=== PATIENT | male | born 1965 | race Caucasian/White ===

== ENCOUNTER 2018-01-20 18:19 | Inpatient (IN) ==
[2018-01-20] MEDS ORDERED: Diphtheria/Tetanus/Pertussis Vaccine Inj 0.5 ML Syringe IM ONE (18:35)
[2018-01-20] MEDS ORDERED: Morphine Inj 4 MG/ML Vial IV.PUSH ONE ×2 (18:35→19:58)
[2018-01-20] MEDS ORDERED: Sod Chloride 0.9% Inj 1,000 ML IV.SIG SCH (18:45)
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
[2018-01-20 19:06] LABS: Baso % (Auto) 0.4 % (0.0-2.0); Eos # (Auto) 0.1 th/mm3 (0.0-0.4); Eos % (Auto) 1.1 % (0.0-4.0); Hematocrit 44.4 % (39.0-51.0); Hemoglobin 14.7 gm/dL (13.0-17.0); Lymph # (Auto) 1.6 th/mm3 (1.0-4.8); Lymph % (Auto) 18.6 % (9.0-44.0); Mean Corpuscular HGB Conc 33.2 % (32.0-36.0); Mean Corpuscular Hemoglobin 29.7 pg (27.0-34.0); Mean Corpuscular Volume 89.4 fL (80.0-100.0); Mean Platelet Volume 9.8 fL (7.0-11.0); Mono # (Auto) 0.6 th/mm3 (0.0-0.9); Mono % (Auto) 7.4 % (0.0-8.0); Neut # (Auto) 6.3 th/mm3 (1.8-7.7); Neut % (Auto) 72.5 % (16.0-70.0); Platelet Count 141 th/mm3 (150-450); Red Blood Count 4.96 mil/mm3 (4.50-5.90); White Blood Count 8.7 th/mm3 (4.0-11.0)
[2018-01-20 19:21] LABS: Activated Partial Thrombo Time 22.2 sec (23.4-31.7); INR 1.1 Ratio; Prothrombin Time 10.8 sec (9.8-11.6)
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
[2018-01-20 19:55] LABS: Calcium 8.5 mg/dL (8.5-10.1); Carbon Dioxide 24.5 meq/L (21.0-32.0); Potassium 3.9 meq/L (3.5-5.1)
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
[2018-01-21] MEDS: Sod Chloride 0.9% Inj 1,000 ML IV.CONT SCH ×3 (00:33→12:20)
[2018-01-21] MEDS: HYDROmorphone PF Inj 1 MG/ML Ampul IV.PUSH PRN ×5 (02:05→21:24)
[2018-01-21] MEDS ORDERED: Chlorhexidine Gluconate 2% 1 Pack (2 Cloths) TOPICAL ONE (05:15)
[2018-01-21] MEDS ORDERED: Sodium Chlor 0.9% Inj 500 ML IV.CONT ONE (05:15)
[2018-01-21 06:24] LABS: Baso % (Auto) 0.1 % (0.0-2.0); Eos % (Auto) 0.1 % (0.0-4.0); Hemoglobin 12.7 gm/dL (13.0-17.0); Lymph # (Auto) 0.6 th/mm3 (1.0-4.8); Lymph % (Auto) 6.9 % (9.0-44.0); Mean Corpuscular HGB Conc 34.3 % (32.0-36.0); Mean Corpuscular Hemoglobin 30.3 pg (27.0-34.0); Mean Corpuscular Volume 88.5 fL (80.0-100.0); Mean Platelet Volume 9.8 fL (7.0-11.0); Mono # (Auto) 0.6 th/mm3 (0.0-0.9); Mono % (Auto) 6.3 % (0.0-8.0); Neut # (Auto) 7.6 th/mm3 (1.8-7.7); Neut % (Auto) 86.6 % (16.0-70.0); Platelet Count 128 th/mm3 (150-450); Red Blood Count 4.18 mil/mm3 (4.50-5.90); Red Cell Distribution Width 14.9 % (11.6-17.2); White Blood Count 8.8 th/mm3 (4.0-11.0)
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
[2018-01-21 06:57] LABS: Albumin 3.1 g/dL (3.4-5.0); Anion Gap 8 meq/L (5-15); Aspartate Aminotransferase 76 U/L (15-37); Blood Urea Nitrogen 24 mg/dL (7-18); Calcium 7.8 mg/dL (8.5-10.1); Carbon Dioxide 26.5 meq/L (21.0-32.0); Chloride 108 meq/L (98-107); Glomerular Filtration Rate 56 mL/min (>89); Glucose,Random 157 mg/dL (74-106); Potassium 4.4 meq/L (3.5-5.1); Sodium 142 meq/L (136-145)
[2018-01-21 07:01] LABS: Alanine Aminotransferase 41 U/L (12-78); Alkaline Phosphatase 53 U/L (45-117); Total Protein 6.4 g/dL (6.4-8.2)
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
[2018-01-21] MEDS: Senna/Docusate Sodium 8.6/50 MG Tablet PO SCH ×2 (09:05→21:24)
[2018-01-21] MEDS: Atenolol 100 MG Tablet PO SCH (09:05)
[2018-01-21] MEDS: amLODIPine 5 MG Tablet PO SCH (09:05)
[2018-01-21] MEDS: Polyethylene Glycol 3350 17 GM Packet PO SCH (09:06)
[2018-01-21] MEDS: Pantoprazole Inj 40 MG Vial IV.PUSH SCH (09:13)
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
[2018-01-21] MEDS ORDERED: fentaNYL Citrate Inj 250 MCG/5 ML Ampul ONE (14:59)
[2018-01-21] MEDS ORDERED: Iohexol 350 MG/ML 50 ML Vial (for Rad Diag) IVCONTRAST ONE (15:40)
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
[2018-01-21] MEDS: Atenolol 50 MG Tablet PO SCH (21:23)
[2018-01-22] MEDS: HYDROmorphone PF Inj 1 MG/ML Ampul IV.PUSH PRN ×4 (02:07→19:17)
[2018-01-22 05:57] LABS: Baso % (Auto) 0.4 % (0.0-2.0); Eos % (Auto) 0.4 % (0.0-4.0); Hematocrit 34.8 % (39.0-51.0); Hemoglobin 11.9 gm/dL (13.0-17.0); Lymph # (Auto) 1.1 th/mm3 (1.0-4.8); Lymph % (Auto) 14.3 % (9.0-44.0); Mean Corpuscular HGB Conc 34.1 % (32.0-36.0); Mean Corpuscular Hemoglobin 30.4 pg (27.0-34.0); Mean Corpuscular Volume 89.4 fL (80.0-100.0); Mean Platelet Volume 9.3 fL (7.0-11.0); Mono # (Auto) 0.8 th/mm3 (0.0-0.9); Mono % (Auto) 10.9 % (0.0-8.0); Neut # (Auto) 5.6 th/mm3 (1.8-7.7); Platelet Count 108 th/mm3 (150-450); Red Cell Distribution Width 14.6 % (11.6-17.2); White Blood Count 7.5 th/mm3 (4.0-11.0)
[2018-01-22] MEDS: Pantoprazole Inj 40 MG Vial IV.PUSH SCH (06:01)
[2018-01-22 06:40] LABS: Calcium 7.9 mg/dL (8.5-10.1); Carbon Dioxide 26.7 meq/L (21.0-32.0); Potassium 4.4 meq/L (3.5-5.1)
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
[2018-01-22] MEDS: Sod Chloride 0.9% Inj 1,000 ML IV.CONT SCH ×3 (07:52→18:20)
--- NOTE | 2018-01-22 08:33 | ECG ---
Date Performed: 01/22/2018 Time Performed: 04:33:42 PTAGE: 52 years EKG: Atrial fibrillation with rapid ventricular response. Poor R wave progression - probable nor mal variant Inferior T wave changes are nonspecific Generalized low QRS voltages Abnormal ECG NO PREVIOUS TRACING DOCTOR: Carlito Rojas Interpretating Date/Time 01/22/2018 08:31:46
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
[2018-01-22] MEDS: amLODIPine 5 MG Tablet PO SCH (09:39)
[2018-01-22] MEDS: Senna/Docusate Sodium 8.6/50 MG Tablet PO SCH ×2 (09:39→20:59)
[2018-01-22] MEDS: Polyethylene Glycol 3350 17 GM Packet PO SCH (09:39)
[2018-01-22] MEDS: Atenolol 100 MG Tablet PO SCH (09:54)
[2018-01-22] MEDS ORDERED: ceFAZolin 2 GM Premix Inj 2 GM/50 ML PIGGYBACK IV.SIG ONE (10:42)
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
[2018-01-22] MEDS ORDERED: Enoxaparin Inj 60 MG/0.6 ML Syringe SQ ONE (11:32)
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
[2018-01-22] MEDS: Atenolol 50 MG Tablet PO SCH (20:59)
[2018-01-23] MEDS ORDERED: Chlorhexidine Gluconate 2% 1 Pack (2 Cloths) TOPICAL ONE (05:07)
[2018-01-23] MEDS: Pantoprazole Inj 40 MG Vial IV.PUSH SCH (05:25)
[2018-01-23] MEDS ORDERED: Sodium Chlor 0.9% Inj 500 ML IV.SIG SCH (06:00)
[2018-01-23] MEDS ORDERED: Bupivacaine/Epinephrine Inj 0.25% 50 ML Vial ONE (06:55)
[2018-01-23] MEDS ORDERED: Neostigmine Inj 5 MG/5 ML Syringe IV.PUSH ONE (08:36)
[2018-01-23] MEDS ORDERED: Lidocaine PF 1% Inj 5 ML Syringe OTHER ONE (08:36)
[2018-01-23] MEDS ORDERED: Glycopyrrolate Inj 1 MG/5 ML Syringe IV.PUSH ONE (08:36)
--- NOTE | 2018-01-23 09:40 | P.PNOP ---
Subjective Interval history: Resting comfortably with no new complaints. Physical Exam Vital signs: Vital Signs 01/22/18 12:00 01/22/18 16:00 01/22/18 20:14 Temperature 98.1 F 97.8 F 97.7 F Pulse Rate 102 H 99 H 126 H Respiratory Rate 19 18 19 Blood Pressure 152/69 H 122/52 L 158/84 H Pulse Oximetry 95 94 L 96 01/22/18 23:42 01/23/18 04:43 01/23/18 07:15 Temperature 97.6 F 99.2 F 98.4 F Pulse Rate 110 H 93 H 96 H Respiratory Rate 19 19 19 Blood Pressure 148/65 H 121/68 121/67 Pulse Oximetry 94 L 95 98 Intake & Output 01/22/18 01/23/18 01/23/18 18:59 06:59 18:59 Intake Total 480 / 480 0 / 0 Output Total 550 / 550 500 / 500 Balance -70 / -70 -500 / -500 Weight 218.3 kg Intake: Oral 480 / 480 0 / 0 Output: Urine 550 / 550 500 / 500 Other: Date of Last Bowel Movement 01/20/18 01/20/18 # Bowel Movements 0 Narrative: Right lower extremity: Splint intact. Intact sensation all toes. Patient is marked for surgery. Left lower extremity: Moderate pain with range of motion of the hip. Intact sensation with some tenderness over the proximal tibia and also over the hip. Intact sensation distally with active dorsiflexion and plantarflexion of foot Results - Labs CBC & Chem 7: 01/22/18 05:11 01/22/18 05:11 - Imaging Impressions Lumbar Spine CT 01/21/18 00:00 CONCLUSION: 1. Limited exam because of patient's body habitus. MRI would be of benefit to further evaluate apparent spinal stenosis and disc protrusion at L5-S1. Assessment and Plan - Assessment and Plan 1) Left Acetabulum Fx -Due to the severe comminution and risks of surgery at this point we will treat this nonoperatively. Surgical fixation in a prone position we will put him at a greater chance of pulmonary and cardiac risks. We will treat this nonoperatively by toe-touch weightbearing on the left lower extremity. He will avoid any active leg lifts or quad sets. In surgery today if the acetabulum appears to be relatively well aligned without traction we will be done with surgery at this time. If with traction it improved significantly skeletal traction may be performed to help with reduction and healing of the acetabulum 2) Right Talar Neck Fx and Fibula fx -maintain splint -elevate -N.p.o. -Surgery this morning with Dr. Rand
[2018-01-23] MEDS ORDERED: Post-op Orders (for Pharmacy) OTHER STA (10:10)
--- NOTE | 2018-01-23 10:21 | P.OP ---
- Preoperative Diagnosis (1) Closed left acetabular fracture (2) Fracture of right talus Date of procedure: 01/23/18 Procedure: Open reduction internal fixation right talus Anesthesia: GETA Surgeon: Sinan Reddy MD Lining Caser: HAYDEN Fountain PA-C The surgical procedure was assisted by my physician gallery assistant. My P.A. presence was necessary throughout this case for the manipulation and positioning of the surgical extremity. My P.A. was assisting me throughout the duration of this procedure. The skill set of a physician gallery assistant was medically necessary to complete this procedure. During the surgical case the surgical training specialist was working at the back table and the physician gallery assistant was directly assisting me. Operation and Findings: Implants used: Synthes Plan of activity: Nonweightbearing bilateral lower extremities Details of procedure: Patient was seen and evaluated preoperatively and found to have a displaced right talus fracture and comminuted left acetabular fracture. Informed consent was obtained after a detailed discussion of risk and benefits of surgery. The operative site was marked. Patient was brought to the OR, placed on the OR table, and given IV sedation and general endotracheal anesthesia. IV antibiotics were given preoperatively. A timeout procedure was performed. The operative leg was prepped with alcohol followed by Hibiclens and draped in the usual sterile fashion. Attention was turned towards the medial side of the talus. A 3-inch incision was made over the medial talus. The subcutaneous tissue was dissected with Bovie. The joint capsule of the talonavicular joint was opened. The fracture site was visualized. The fracture site was cleaned with curets. There was mild comminution present. At this point the talar neck fracture was mobilized. Fracture was manipulated. The fracture was now reduced. The fracture keyed into anatomic alignment. K-wires were used to hold provisional fixation. Multiplanar fluoroscopy confirmed excellent alignment of fracture. Two guidepins were placed across the medial aspect of the talar neck into the talar body. Screw lengths were measured. Countersink was utilized. 4.0 cannulated screws were now placed over the guidepins. Good compression was applied. Fluoroscopy confirmed well-placed screw. Next, A Synthes 2.4 plate was selected and contoured to fit along the medial side of the talus. A single medial incision was made secondary to patient's poor peripheral blood flow and obesity. The plate was provisionally held to bone with K-wires. 2.4 cortical screws were used to compress the plate to bone. Additional locking screws were placed above and below the fracture. Final fluoroscopy revealed excellent alignment of fracture with well-placed hardware. Direct visualization also confirmed well aligned fracture. Tourniquet was released. Hemostasis was confirmed. Incisions were thoroughly irrigated. The subcutaneous tissue was closed with 0 Vicryl, 3-0 Vicryl, and the skin was closed with 3-0 nylon. Sterile dressings were applied. A well molded well-padded splint was applied. The patient was transferred to Recovery in stable condition. Needle and sponge counts were correct.
[2018-01-23] MEDS ORDERED: fentaNYL Citrate Inj 100 MCG/2 ML Ampul ONE ×2 (10:52)
[2018-01-23] MEDS ORDERED: *morphine SULFATE 10 MG/ML PERIprocedure ONLY ONE (11:14)
[2018-01-23] MEDS: Ketorolac Inj 30 MG/ML (IVP) Vial IV.PUSH SCH ×2 (11:34→23:30)
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
[2018-01-23] MEDS: amLODIPine 5 MG Tablet PO SCH (14:08)
[2018-01-23] MEDS: Polyethylene Glycol 3350 17 GM Packet PO SCH (14:08)
[2018-01-23] MEDS: Senna/Docusate Sodium 8.6/50 MG Tablet PO SCH ×2 (14:12→21:08)
--- NOTE | 2018-01-23 16:17 | XR ---
EXAM DATE: 01/23/2018 4:14 PM EST AGE/SEX: 52 years / Male INDICATIONS: Evaluate acetabulum fracture. CLINICAL DATA: This is the patient's initial encounter. Patient reports that signs and symptoms have been present for 4 - 6 days and indicates a pain score of 10/10. MEDICAL/SURGICAL HISTORY: None. None. COMPARISON: [facility] [place] 2[place], [place]. . FINDINGS: 3 views of the pelvis. Left-sided pelvic fractures again seen with involvement of the left inferior p ubic ramus and medial acetabulum. Sacroiliac joints within normal limits. Pubic symphysis within norm al limits. Alignment at the hips within normal limits. CONCLUSION: Left-sided pelvic fractures involving the medial acetabulum and inferior pubic ramus/ischium. Electronically signed by: Timo Viveros MD 01/23/2018 4:16 PM EST
--- NOTE | 2018-01-23 17:06 | XR ---
EXAM DATE: 01/23/2018 5:02 PM EST AGE/SEX: 52 years / Male INDICATIONS: Open reduction internal fixation right ankle. CLINICAL DATA: This is the patient's initial encounter. Patient reports that signs and symptoms have been present for 1 day and indicates a pain score of Nonresponsive. MEDICAL/SURGICAL HISTORY: Non-responsive. Non-responsive. COMPARISON: [facility] [place] MIN 3V, 01/21/2018. . FINDINGS: 5 intraoperative digital spot images of the ankle. Medial malleable internal fixation plate and multi ple transfixing screws in the talus. 2 obliquely oriented screws in the talar neck. CONCLUSION: Intraoperative spot images showing surgical hardware in the talus. Electronically signed by: Timo Viveros MD 01/23/2018 5:05 PM EST
[2018-01-23] MEDS: Calcium/Vitamin D 250/125 MG Tablet PO SCH ×2 (18:34→19:52)
[2018-01-23] MEDS: ceFAZolin 2 GM Premix Inj 2 GM/50 ML PIGGYBACK IV.SIG SCH (18:35)
[2018-01-23] MEDS: Vancomycin Inj 1,000 MG in Sodium Chlor 0.9% Inj 250 ML IV.SIG SCH (21:08)
[2018-01-23] MEDS: Atenolol 50 MG Tablet PO SCH (21:08)
[2018-01-23] MEDS ORDERED: Enoxaparin Inj 40 MG/0.4 ML Syringe SQ SCH (23:00)
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
[2018-01-23] MEDS: HYDROmorphone PF Inj 1 MG/ML Ampul IV.PUSH PRN (23:30)
[2018-01-24] MEDS: ceFAZolin 2 GM Premix Inj 2 GM/50 ML PIGGYBACK IV.SIG SCH ×3 (01:58→16:50)
[2018-01-24] MEDS: Pantoprazole Inj 40 MG Vial IV.PUSH SCH (05:33)
--- NOTE | 2018-01-24 06:40 | P.PNOP ---
Subjective Interval history: POD 1 s/p ORIF right talus s/p left acetabulum fx doing well. pain controlled. improving Physical Exam Vital signs: Vital Signs 01/23/18 07:15 01/23/18 10:45 01/23/18 11:00 Temperature 98.4 F 98.1 F Pulse Rate 96 H 97 H 109 H Respiratory Rate 19 19 19 Blood Pressure 121/67 138/86 143/85 H Pulse Oximetry 98 98 98 01/23/18 11:15 01/23/18 11:30 01/23/18 11:55 Temperature 98.4 F Pulse Rate 110 H 115 H 111 H Respiratory Rate 19 19 19 Blood Pressure 134/72 137/84 122/57 L Pulse Oximetry 95 97 98 01/23/18 12:30 01/23/18 15:30 01/23/18 19:45 Temperature 98.5 F 97.4 F L 98.8 F Pulse Rate 112 H 101 H 108 H Respiratory Rate 19 19 20 Blood Pressure 119/71 117/69 127/65 Pulse Oximetry 97 99 95 01/24/18 01:00 01/24/18 03:40 Temperature 98.8 F 97.8 F Pulse Rate 108 H 94 H Respiratory Rate 18 18 Blood Pressure 134/79 121/73 Pulse Oximetry 97 96 Intake & Output 01/23/18 01/23/18 01/24/18 06:59 18:59 06:59 Intake Total 0 / 0 1140 / 1140 2300 / 2300 Output Total 500 / 500 1120 / 1120 Balance -500 / -500 20 / 20 2300 / 2300 Weight 218.3 kg Intake: IV 900 / 900 2300 / 2300 LR 1000 mL Inj 1,000 ML @ 100 2000 / 2000 mls/hr IV.CONT .Q10H [facility] Rx#: [id number] LR 1000 mL Inj 1,000 ML @ 30 850 / 850 mls/hr IV.SIG .Q24H [facility] Rx#: [id number] Vancomycin Inj 1,000 MG In NS 250 / 250 Inj 250 ML @ 200 mls/hr IV.SIG Q12H [facility] Rx#:[id number] Ancef 2 GM Premix Inj 2 gm In 50 / 50 50 / 50 50 ml @ 200 mls/hr IV.SIG Q8H [facility] Rx#:[id number] Oral 0 / 0 240 / 240 Output: Urine 500 / 500 875 / 875 Estimated Blood Loss 20 / 20 Urine Amount (Catheter) 225 / 225 Indwelling Urethral Catheter 225 / 225 Other: Date of Last Bowel Movement 01/20/18 01/20/18 # Bowel Movements 0 Narrative: RLE: +short leg splint. intact. NVI LLE: nvi. good motion of toes and knee - Urinary Catheter Management Indwelling Urethral Catheter Cath placed during this visit: yes Reason for continuing: Hourly intake/output Insertion date: 01/23/18 Insertion time: 09:00 Results - Labs CBC & Chem 7: 01/22/18 05:11 01/22/18 05:11 - Imaging Impressions Ankle X-Ray 01/23/18 00:00 CONCLUSION: Intraoperative spot images showing surgical hardware in the talus. Pelvis X-Ray 01/23/18 00:00 CONCLUSION: Left-sided pelvic fractures involving the medial acetabulum and inferior pubic ramus/ischium. Assessment and Plan - Assessment and Plan 1) Left Acetabulum Fx - nonop -NWB -new xrays shoe acceptable alignment -will still plan for nonop treatment -patient needs to be on weight based lovenox at this point. currently on 40mg BID. do not thing this is effective dose -will discuss with trauma team and see if they can manage his appropriate lovenox dose. if they are uncomfortable managing, will need to consult hospitalist service to manage -once lovenox dosage is adjusted, will be ortho cleared for DC to SNF -f/u with [facility] or [facility] in 2 weeks 2) Right Talar Neck Fx and Fibula fx s/p ORIF - POD 1 -NWB -maintain splint at all times -[facility] [place] Prescription Drug Monitoring Database has been queried and verified prior to prescribing the controlled substance. Acute pain exception. This patient has normal, predicted, physiological, and time limited response to an adverse mechanical stimulus associated with surgery, trauma, or acute illness as described in my notes. There is a lack of alternative treatment options other than to include the prescribed narcotic treatment for this condition.
[2018-01-24] MEDS: Calcium/Vitamin D 250/125 MG Tablet PO SCH ×3 (08:43→18:21)
[2018-01-24] MEDS: Polyethylene Glycol 3350 17 GM Packet PO SCH (08:43)
[2018-01-24] MEDS: amLODIPine 5 MG Tablet PO SCH (08:43)
[2018-01-24] MEDS: Senna/Docusate Sodium 8.6/50 MG Tablet PO SCH ×2 (08:43→20:35)
[2018-01-24] MEDS: Sod Chloride 0.9% Inj 1,000 ML IV.CONT SCH ×2 (08:52→11:34)
[2018-01-24] MEDS ORDERED: Metoprolol Tartrate 25 MG Tablet PO SCH (09:00)
[2018-01-24 09:44] LABS: Hematocrit 31.8 % (39.0-51.0); Hemoglobin 11.1 gm/dL (13.0-17.0)
[2018-01-24] MEDS: Vancomycin Inj 1,000 MG in Sodium Chlor 0.9% Inj 250 ML IV.SIG SCH (09:45)
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
[2018-01-24] MEDS: Enoxaparin Inj 100 MG/ML Syringe SQ SCH ×2 (12:45→20:35)
[2018-01-24] MEDS: Ketorolac Inj 30 MG/ML (IVP) Vial IV.PUSH SCH (12:45)
[2018-01-24] MEDS ORDERED: Metoprolol Tartrate 25 MG Tablet PO ONE (13:50)
--- NOTE | 2018-01-24 17:01 | P.CONREH ---
History of Present Illness Primary Care Provider: PROVIDER NON STAFF [facility] - History History Provided By: Patient - Medical History Medical History: Medical History (Last Reviewed 01/24/18 @ 10:49 by Maddie Mead) Hypertension Obesity, morbid (more than 100 lbs over ideal weight or BMI > 40) - Family History Family History: Family History (Last Reviewed 01/23/18 @ 12:18 by Yonathan Zavala) Other Family history non-contributory - Tobacco History Second Hand Smoke Exposure: No Tobacco Use In Past 30 Days: No Smoking Status: Never smoker - Alcohol History How Often Do You Have a Drink Containing Alcohol: Monthly or less - Substance Use History Substance History: No History of Abuse - Travel History Recent Travel in the [place] Within the Last 8 Weeks: No Recent Travel Out of the Country Within the Last 8 Weeks: No - Immunization History Tetanus Immunization: Unsure Hx Influenza Vaccine This Season: No Medications and Allergies Active Medications: Active Medications Al Hydroxide/Mg Hydroxide (Milk Of Jazmin Liq) 30 ml PO Q6H PRN PRN Reason: CONSTIPATION Last Admin: 01/21/18 00:33 Dose: 30 ml Amlodipine Besylate (Norvasc) 5 mg PO DAILY [facility] Last Admin: 01/24/18 08:43 Dose: 5 mg Bacitracin (Baciguent Oint) 1 applicatio TOPICAL BID [facility] Last Admin: 01/24/18 11:35 Dose: 1 applicatio Bumetanide (Bumex) 1 mg PO DAILY [facility] Last Admin: 01/24/18 08:43 Dose: 1 mg Calcium/Vitamin D (Oscal With D 250/125 Mg) 1 tab PO TID [facility] Last Admin: 01/24/18 12:45 Dose: 1 tab Diphenhydramine HCl (Benadryl) 25 mg PO Q6H PRN PRN Reason: ITCHING Enalaprilat (Vasotec Inj) 1.25 mg IV.PUSH Q8H PRN PRN Reason: Blood pressure 180/95 Enoxaparin Sodium (Lovenox Inj) 100 mg SQ Q12HR [facility] Last Admin: 01/24/18 12:45 Dose: 100 mg Fentanyl (Duragesic 50 Mcg Patch.72hr) 1 patch T-DERMAL Q3D [facility] Last Admin: 01/24/18 08:42 Dose: 1 patch Sodium Chloride (Ns Inj) 1,000 mls @ 100 mls/hr IV.CONT .Q10H [facility] Last Admin: 01/24/18 11:34 Dose: Not Given Cefazolin Sodium/Dextrose (Ancef 2 Gm Premix Inj) 2 gm in 50 mls @ 200 mls/hr IV.SIG Q8H [facility] Stop: 01/25/18 09:14 Last Infusion: 01/24/18 11:36 Dose: Infused Lactulose (Lactulose Liq) 30 ml PO DAILY [facility] Last Admin: 01/24/18 08:42 Dose: 30 ml Metoprolol Tartrate (Lopressor) 25 mg PO QID [facility] Ondansetron HCl (Zofran Inj) 4 mg IV.PUSH Q6H PRN PRN Reason: NAUSEA OR VOMITING Last Admin: 01/23/18 11:55 Dose: 4 mg Ondansetron HCl (Zofran Odt) 4 mg PO Q6H PRN PRN Reason: NAUSEA OR VOMITING Oxycodone HCl (Roxicodone) 10 mg PO Q4H PRN PRN Reason: Pain > 3 Last Admin: 01/24/18 14:26 Dose: 10 mg Pantoprazole Sodium (Protonix Inj) 40 mg IV.PUSH Q24H [facility] Last Admin: 01/24/18 05:33 Dose: 40 mg Patch Removal (Remove Old Patch) 1 each T-DERMAL Q3D [facility] Polyethylene Glycol (Miralax) 17 gm PO DAILY [facility] Last Admin: 01/24/18 08:43 Dose: 17 gm Senna/Docusate Sodium (Mena-Colace) 1 tab PO BID [facility] Last Admin: 01/24/18 08:43 Dose: 1 tab Sennosides (Senokot) 17.2 mg PO BID PRN PRN Reason: Moderate Constipation Last Admin: 01/24/18 08:43 Dose: 17.2 mg Sodium Chloride (Ns Flush) 2 ml IV.FLUSH BID [facility] Last Admin: 01/24/18 11:35 Dose: Not Given Sodium Chloride (Ns Flush) 2 ml IV.FLUSH PRN PRN PRN Reason: FLUSH AFTER USING IV ACCESS Vitamin D (Vitamin D3) 5,000 unit PO DAILY [facility] Last Admin: 01/24/18 08:43 Dose: 5,000 unit Allergies Allergy/AdvReac Type Severity Reaction Status Date / Time Penicillins Allergy Unknown unknown Verified 01/20/18 18:35 Home Medications Medication Instructions Recorded Confirmed Type amlodipine 5 mg PO DAILY 01/21/18 01/21/18 History atenolol 50 PO HS 01/21/18 History atenolol 100 mg PO DAILY 01/21/18 01/21/18 History bumetanide 1 mg PO DAILY 01/21/18 01/21/18 History Exam - Physical Examination Vital Signs / I&O: Vital Signs 01/23/18 19:45 01/24/18 01:00 01/24/18 03:40 Temperature 98.8 F 98.8 F 97.8 F Pulse Rate 108 H 108 H 94 H Respiratory Rate 20 18 18 Blood Pressure 127/65 134/79 121/73 Pulse Oximetry 95 97 96 01/24/18 07:55 01/24/18 11:15 01/24/18 15:01 Temperature 98.1 F 97.6 F Pulse Rate 96 H 101 H 98 H Respiratory Rate 17 18 Blood Pressure 129/85 119/68 Pulse Oximetry 98 96 Intake & Output 01/23/18 01/24/18 01/24/18 18:59 06:59 18:59 Intake Total 1140 / 1140 3200 / 3200 50 / 50 Output Total 1120 / 1120 750 / 750 Balance 20 / 20 2450 / 2450 50 / 50 Weight 205.5 kg Intake: IV 900 / 900 2300 / 2300 50 / 50 LR 1000 mL Inj 1,000 ML @ 100 2000 / 2000 mls/hr IV.CONT .Q10H [facility] Rx#: [id number] LR 1000 mL Inj 1,000 ML @ 30 850 / 850 mls/hr IV.SIG .Q24H [facility] Rx#: [id number] Vancomycin Inj 1,000 MG In NS 250 / 250 Inj 250 ML @ 200 mls/hr IV.SIG Q12H [facility] Rx#:[id number] Ancef 2 GM Premix Inj 2 gm In 50 / 50 50 / 50 50 / 50 50 ml @ 200 mls/hr IV.SIG Q8H [facility] Rx#:[id number] Oral 240 / 240 900 / 900 Output: Urine 875 / 875 Estimated Blood Loss 20 / 20 Urine Amount (Catheter) 225 / 225 750 / 750 Indwelling Urethral Catheter 225 / 225 750 / 750 Other: Date of Last Bowel Movement 01/20/18 01/20/18 Intake & Output 01/22/18 01/23/18 01/24/18 01/25/18 06:59 06:59 06:59 06:59 Intake Total 1600 / 1600 480 / 480 4340 / 4340 50 / 50 Output Total 525 / 525 1050 / 1050 1870 / 1870 Balance 1075 / 1075 -570 / -570 2470 / 2470 50 / 50 Weight 218.3 kg 218.3 kg 205.5 kg Date of Last Bowel Movement: 01/20/18 Results - Labs CBC & Chem 7: 01/24/18 09:08 01/22/18 05:11 Labs: Laboratory Results - last 24 hr 01/24/18 09:08 Hgb 11.1 L Hct 31.8 L - Imaging Impressions Ankle X-Ray 01/23/18 00:00 CONCLUSION: Intraoperative spot images showing surgical hardware in the talus. Assessment and Plan - Plan Recommendations: 1. Patient is for a [facility] facility placement. Currently max assist of 3 for bed mobility and nonweightbearing through both lower extremities. 2. Would continue physical and occupational therapy at transfer 3. Careful monitoring of skin and repositioning every 2 hours to prevent breakdown 4. Continue Lovenox for DVT prophylaxis 5. Will follow while hospitalized and at discharge
[2018-01-24] MEDS: Metoprolol Tartrate 25 MG Tablet PO SCH ×2 (18:20→20:35)
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
[2018-01-25] MEDS: ceFAZolin 2 GM Premix Inj 2 GM/50 ML PIGGYBACK IV.SIG SCH ×2 (00:44→08:49)
[2018-01-25] MEDS: Sod Chloride 0.9% Inj 1,000 ML IV.CONT SCH ×3 (00:48→21:08)
[2018-01-25] MEDS: Pantoprazole Inj 40 MG Vial IV.PUSH SCH (06:10)
[2018-01-25] MEDS ORDERED: Bisacodyl 10 MG Supp RECTAL ONE (07:21)
--- NOTE | 2018-01-25 08:25 | P.PNOP ---
Subjective Interval history: pain tolerable Physical Exam Vital signs: Vital Signs 01/24/18 11:15 01/24/18 15:01 01/24/18 16:00 Temperature 97.6 F 98.5 F Pulse Rate 101 H 98 H 114 H Respiratory Rate 18 18 Blood Pressure 119/68 160/83 H Pulse Oximetry 96 96 01/24/18 20:00 01/25/18 00:00 01/25/18 04:00 Temperature 98.2 F 97.6 F 97.5 F L Pulse Rate 108 H 109 H 84 Respiratory Rate 20 18 20 Blood Pressure 151/96 H 138/91 H 145/82 H Pulse Oximetry 97 98 95 Intake & Output 01/24/18 01/25/18 01/25/18 18:59 06:59 18:59 Intake Total 1000 / 1000 50 / 50 Output Total 1949 / 1949 1150 / 1150 Balance -950 / -950 -1100 / -1100 Weight 205.5 kg Intake: IV 1000 / 1000 50 / 50 NS Inj 1,000 ML @ 100 mls/hr IV 600 / 600 .CONT .Q10H [facility] Rx#:[id number] Vancomycin Inj 1,000 MG In NS 250 / 250 Inj 250 ML @ 200 mls/hr IV.SIG Q12H [facility] Rx#:[id number] Ancef 2 GM Premix Inj 2 gm In 100 / 100 50 / 50 50 ml @ 200 mls/hr IV.SIG Q8H [facility] Rx#:[id number] Output: Urine 1949 1150 / 1150 Other: Date of Last Bowel Movement 01/20/18 01/20/18 Narrative: in bed, nad splint RLE intact, nvi LLE neg homans, nvi - Urinary Catheter Management Indwelling Urethral Catheter Cath placed during this visit: yes, but has since been removed by the nurse Reason for continuing: Decision to DC catheter Insertion date: 01/23/18 Insertion time: 09:00 Removal date: 01/24/18 Removal time: 14:37 Results - Labs CBC & Chem 7: 01/24/18 09:08 01/22/18 05:11 Laboratory Results - last 24 hr 01/24/18 09:08 Hgb 11.1 L Hct 31.8 L - Procedures 01/21: IVC filter placement 01/23: ORIF right talus Assessment and Plan - Assessment and Plan 1) Left Acetabulum Fx - nonop -NWB -new xrays shoe acceptable alignment -will still plan for nonop treatment -patient needs to be on weight based lovenox at this point. 100mg BID -ortho cleared for DC to SNF -f/u with [facility] or [facility] in 2 weeks 2) Right Talar Neck Fx and Fibula fx s/p ORIF - POD 2 -NWB -maintain splint at all times -elevate E-FORCSE Prescription Drug Monitoring Database has been queried and verified prior to prescribing the controlled substance. Acute pain exception. This patient has normal, predicted, physiological, and time limited response to an adverse mechanical stimulus associated with surgery, trauma, or acute illness as described in my notes. There is a lack of alternative treatment options other than to include the prescribed narcotic treatment for this condition.
[2018-01-25] MEDS: Metoprolol Tartrate 25 MG Tablet PO SCH ×4 (08:48→21:05)
[2018-01-25] MEDS: Enoxaparin Inj 100 MG/ML Syringe SQ SCH ×2 (08:49→21:05)
[2018-01-25] MEDS: amLODIPine 5 MG Tablet PO SCH (08:49)
[2018-01-25] MEDS: Calcium/Vitamin D 250/125 MG Tablet PO SCH ×3 (08:49→17:09)
[2018-01-25] MEDS: Senna/Docusate Sodium 8.6/50 MG Tablet PO SCH ×2 (10:54→21:04)
[2018-01-25] MEDS: Polyethylene Glycol 3350 17 GM Packet PO SCH (10:54)
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
--- NOTE | 2018-01-25 14:38 | ECHRPT ---
Indication: CONCLUSIONS The left ventricular systolic function is normal with an estimated ejection fraction in the range of 55-60%. Normal left ventricular size. Mild concentric left ventricular hypertrophy. No regional wall motion abnormalities are present. Mild thickening of the mitral valve leaflets. Trace mitral valve regurgitation. There is trace tricuspid valve regurgitation. Normal estimated pulmonary pressures. Very technically difficult study due to morbid obesity, many images off-axis. BP: / HR: Rhythm: Atrial fibrillation MEASUREMENTS (Male / Female) Normal Values Technical Quality:Very technically difficult study 2D ECHO LV Diastolic Diameter PLAX 5.1 cm 4.2 - 5.9 / 3.9 - 5.3 cm LV Systolic Diameter PLAX 3.8 cm IVS Diastolic Thickness 1.2 cm 0.6 - 1.0 / 0.6 - 0.9 cm LVPW Diastolic Thickness 1.2 cm 0.6 - 1.0 / 0.6 - 0.9 cm LV Relative Wall Thickness 0.5 LVOT Diameter 1.8 cm LA Systolic Diameter LX 4.0 cm 3.0 - 4.0 / 2.7 - 3.8 cm M-MODE Aortic Root Diameter MM 2.3 cm LA Systolic Diameter MM 4.0 cm LA Ao Ratio MM 1.7 AV Cusp Separation MM 2.1 cm DOPPLER AV Peak Velocity 109.0 cm/s AV Peak Gradient 4.8 mmHg LVOT Peak Velocity 116.0 cm/s LVOT Peak Gradient 5.4 mmHg AV Area Cont Eq pk 2.7 cm MV Area PHT 4.4 cm LV E' Lateral Velocity 12.3 cm/s LV E' Septal Velocity 12.3 cm/s TR Peak Velocity 122.0 cm/s TR Peak Gradient 6.0 mmHg Right Atrial Pressure 10.0 mmHg Pulmonary Artery Systolic Pressu 16.0 mmHg Right Ventricular Systolic Press 16.0 mmHg PV Peak Velocity 107.0 cm/s PV Peak Gradient 4.6 mmHg FINDINGS LEFT VENTRICLE The left ventricular systolic function is normal with an estimated ejection fraction in the range of 55-60%. Normal left ventricular size. Mild concentric left ventricular hypertrophy. No regional wall motion abnormalities are present. RIGHT VENTRICLE Normal right ventricular size and systolic function. LEFT ATRIUM The left atrial size is normal. RIGHT ATRIUM The right atrial size is normal. ATRIAL SEPTUM Normal atrial septal thickness without atrial level shunting by limited color doppler interrogation. AORTA The aortic root and proximal ascending aorta are normal in size on limited imaging. MITRAL VALVE Mild thickening of the mitral valve leaflets. Trace mitral valve regurgitation. AORTIC VALVE Trileaflet aortic valve. No aortic valve stenosis or regurgitation. TRICUSPID VALVE Structurally normal tricuspid valve. There is trace tricuspid valve regurgitation. Normal estimated pulmonary pressures. PULMONARY VALVE No pulmonary valve regurgitation or stenosis. VESSELS The inferior vena cava is normal in size. PERICARDIUM No pericardial effusion. Ricky Mckinnon MD (Electronically Signed) Final Date:25 January 2018 14:14
[2018-01-26] MEDS: Sod Chloride 0.9% Inj 1,000 ML IV.CONT SCH ×2 (03:12→14:59)
[2018-01-26] MEDS: Pantoprazole Inj 40 MG Vial IV.PUSH SCH (05:13)
[2018-01-26] MEDS ORDERED: Magnesium Citrate Liq 300 ML Bottle PO ONE (06:56)
[2018-01-26] MEDS: Calcium/Vitamin D 250/125 MG Tablet PO SCH ×3 (08:02→17:10)
[2018-01-26] MEDS: Metoprolol Tartrate 25 MG Tablet PO SCH ×4 (08:02→21:05)
[2018-01-26] MEDS: amLODIPine 5 MG Tablet PO SCH (08:02)
[2018-01-26] MEDS: Senna/Docusate Sodium 8.6/50 MG Tablet PO SCH ×2 (08:02→21:06)
[2018-01-26] MEDS: Enoxaparin Inj 100 MG/ML Syringe SQ SCH (08:03)
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
[2018-01-26] MEDS: Polyethylene Glycol 3350 17 GM Packet PO SCH (08:38)
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
[2018-01-27] MEDS: Sod Chloride 0.9% Inj 1,000 ML IV.CONT SCH ×4 (00:35→19:35)
[2018-01-27] MEDS ORDERED: Chlorhexidine Gluconate 2% 1 Pack (2 Cloths) TOPICAL ONE (03:36)
[2018-01-27] MEDS ORDERED: Metoprolol Tartrate 25 MG Tablet PO ONE (03:36)
[2018-01-27] MEDS ORDERED: Sodium Chlor 0.9% Inj 500 ML IV.SIG SCH (04:00)
[2018-01-27] MEDS ORDERED: Bisacodyl 10 MG Supp RECTAL ONE (06:09)
[2018-01-27] MEDS: Pantoprazole Inj 40 MG Vial IV.PUSH SCH (06:15)
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
[2018-01-27] MEDS ORDERED: ceFAZolin 1 GM Premix Inj 2 GM/100 ML FROZ.PIGGY IV.SIG ONE (07:12)
[2018-01-27] MEDS ORDERED: ceFAZolin 1 GM Premix Inj 1 GM/50 ML FROZ.PIGGY IV.SIG ONE (07:12)
[2018-01-27] MEDS ORDERED: Phenylephrine/NS 1000 MCG/10ML Syringe IV.PUSH ONE (08:00)
[2018-01-27] MEDS ORDERED: Succinylcholine Inj 100 MG/5 ML Syringe IV.PUSH ONE (08:00)
[2018-01-27] MEDS ORDERED: Labetalol HCl Inj 100 MG/20 ML Vial IV.CONT ONE (08:00)
[2018-01-27] MEDS ORDERED: Esmolol Bolus Inj 100 MG/10 ML Vial IV.PUSH ONE (08:00)
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
[2018-01-27] MEDS: Calcium/Vitamin D 250/125 MG Tablet PO SCH ×3 (09:00→17:25)
[2018-01-27] MEDS: Senna/Docusate Sodium 8.6/50 MG Tablet PO SCH (09:00)
[2018-01-27] MEDS: amLODIPine 5 MG Tablet PO SCH (09:00)
[2018-01-27] MEDS: Polyethylene Glycol 3350 17 GM Packet PO SCH (09:00)
[2018-01-27] MEDS ORDERED: Sugammadex Inj 200 MG/2 ML Vial IV.PUSH ONE (09:02)
[2018-01-27] MEDS ORDERED: Post-op Orders (for Pharmacy) OTHER STA (09:19)
--- NOTE | 2018-01-27 09:26 | P.OP ---
- Preoperative Diagnosis (1) Fracture of ankle, trimalleolar, left, closed Date of procedure: 01/27/18 Procedure: Open reduction internal fixation of left ankle fractures, stress exam of syndesmosis Anesthesia: GETA Surgeon: Sinan Reddy MD Concrete Worker: HAYDEN Fountain PA-C The surgical procedure was assisted by my physician assistant women's tennis coach. My P.A. presence was necessary throughout this case for the manipulation and positioning of the surgical extremity. My P.A. was assisting me throughout the duration of this procedure. The skill set of a physician assistant women's tennis coach was medically necessary to complete this procedure. During the surgical case the surgical garment assembler was working at the back table and the physician assistant women's tennis coach was directly assisting me. Operation and Findings: Implants used : ITS Plan of activity: Nonweightbearing bilateral legs, elevate feet Details of procedure: Patient was seen and evaluated preoperatively and found to have a displaced left trimalleolar ankle fracture. Informed consent was obtained after a detailed discussion of risk and benefits of surgery. The operative site was marked. Patient was brought to the OR, placed on the OR table, and given IV sedation and general endotracheal anesthesia. IV antibiotics were given preoperatively. A timeout procedure was performed. The operative leg was prepped with alcohol followed by Hibiclens and draped in the usual sterile fashion. Attention was turned towards the distal fibula. A 5-inch incision was made over the distal fibula. The subcutaneous tissue was dissected with Bovie. The fracture site was visualized. The fracture site was cleaned with curets. The fracture was now reduced. The fracture keyed into anatomic alignment. K-wires were used to hold provisional fixation. A plate was selected and contoured to fit the distal fibula. The plate was provisionally held to bone with K- wires. 3.5 cortical screws were used to compress the plate to bone. Multiple screws were placed above and below the fracture. Next attention was turned towards the medial malleolus. The medial malleolus supposed through a 3 cm incision. Saphenous vein was retracted. Fracture was visualized. Fracture was cleaned with curettes. Fracture was now reduced and keyed into anatomic alignment. K wires were used to hold provisional fixation. 2 guidepins for the 4.0 cannulated screws were placed in a retrograde fashion across the fracture. Fluoroscopy was used to confirm guidepin placement. Cannulated drill was placed over the guidepin. 2 appropriate length screws were now placed. Good compression was applied. Fluoroscopy confirmed well aligned fracture with well-placed hardware. The posterior malleolus fragment was visualized under fluoroscopy. This fragment was relatively small. There was minimal articular surface present on this fragment. Next, attention was turned to the syndesmosis. The syndesmosis was stressed. There was no widening of the syndesmosis with external rotation of the ankle. Incisions were thoroughly irrigated. The subcutaneous tissue was closed with 3-0 Vicryl and the skin was closed with 3-0 nylon. Sterile dressings were applied. A well molded well-padded splint was applied. The patient was transferred to Recovery in stable condition. Needle and sponge counts were correct.
[2018-01-27] MEDS ORDERED: fentaNYL Citrate Inj 100 MCG/2 ML Ampul ONE (10:15)
[2018-01-27] MEDS ORDERED: Metoprolol Inj 5 MG/5 ML Vial ONE ×2 (10:20→10:46)
[2018-01-27] MEDS ORDERED: Metoprolol Inj 5 MG/5 ML Vial IV.PUSH PRN (10:37)
[2018-01-27] MEDS ORDERED: Metoprolol Inj 5 MG/5 ML Vial IV.PUSH SCH (10:45)
[2018-01-27] MEDS ORDERED: *morphine SULFATE 10 MG/ML PERIprocedure ONLY ONE (11:02)
--- NOTE | 2018-01-27 11:10 | XR ---
EXAM DATE: 01/27/2018 11:04 AM EST AGE/SEX: 52 years / Male INDICATIONS: Open reduction internal fixation of the left ankle. CLINICAL DATA: This is the patient's initial encounter. Patient reports that signs and symptoms have been present for 1 day and indicates a pain score of Nonresponsive. MEDICAL/SURGICAL HISTORY: Non-responsive. Non-responsive. COMPARISON: No prior exams available for comparison. FINDINGS: Postsurgical changes following open reduction internal fixation of a bimalleolar fracture are noted. Medial malleolar fracture has been stabilized with 2 screws. An extra medullary plates stabilizing a distal oblique fracture of the fibula. Ankle mortise is well-maintained. Fracture fragments are well aligned. CONCLUSION: Satisfactory postoperative appearance of the left ankle status post ORIF. Electronically signed by: Kj Sher MD 01/27/2018 11:08 AM EST
[2018-01-27] MEDS ORDERED: Metoprolol Inj 5 MG/5 ML Vial IV.PUSH ONE (12:30)
[2018-01-27] MEDS: Metoprolol Tartrate 25 MG Tablet PO SCH ×4 (13:00→20:55)
[2018-01-27] MEDS ORDERED: Magnesium Citrate Liq 300 ML Bottle PO PRN (14:00)
[2018-01-27] MEDS: ceFAZolin Inj 3,000 MG in Sodium Chlor 0.9% Inj 100 ML IV.SIG SCH (16:11)
--- NOTE | 2018-01-27 16:55 | ECG ---
Date Performed: 01/27/2018 Time Performed: 11:51:14 PTAGE: 52 years EKG: ATRIAL FIBRILLATION WITH RAPID VENTRICULAR RESPONSE MODERATE INTRAVENTRICULAR CONDUCTION DE LAY ABNORMAL ECG PREVIOUS TRACING : 01/22/2018 04.33 Since the previous tracing, no significant change noted DOCTOR: Quiana Reinoso Interpretating Date/Time 01/27/2018 16:54:16
[2018-01-27] MEDS: dilTIAZem 30 MG Tablet PO SCH (17:25)
[2018-01-27] MEDS: Vancomycin Inj 1,000 MG in Sodium Chlor 0.9% Inj 250 ML IV.SIG SCH (20:41)
[2018-01-27] MEDS: Enoxaparin Inj 100 MG/ML Syringe SQ SCH (22:30)
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
[2018-01-28] MEDS: dilTIAZem 30 MG Tablet PO SCH ×5 (00:37→21:16)
[2018-01-28] MEDS: Senna/Docusate Sodium 8.6/50 MG Tablet PO SCH ×2 (00:40→09:28)
[2018-01-28] MEDS: ceFAZolin Inj 3,000 MG in Sodium Chlor 0.9% Inj 100 ML IV.SIG SCH ×2 (00:55→09:23)
--- NOTE | 2018-01-28 06:34 | P.PNOP ---
Subjective Interval history: POD 1 s/p ORIF left bimalleolar ankle POD 5 s/p ORIF right talus s/p left acetabulum fracture doing well. states pain improved. Physical Exam Vital signs: Vital Signs 01/27/18 10:06 01/27/18 10:15 01/27/18 10:30 Temperature 98.3 F Pulse Rate 129 H 141 H 146 H Respiratory Rate 24 23 22 Blood Pressure 140/79 146/69 H 152/74 H Pulse Oximetry 100 100 99 01/27/18 10:45 01/27/18 11:00 01/27/18 11:15 Temperature 97.7 F Pulse Rate 141 H 138 H 136 H Respiratory Rate 20 14 18 Blood Pressure 155/72 H 160/85 H 149/80 H Pulse Oximetry 99 99 99 01/27/18 11:30 01/27/18 11:45 01/27/18 12:00 Temperature 98.0 F Pulse Rate 146 H 138 H 140 H Respiratory Rate 17 20 18 Blood Pressure 129/80 133/94 H 115/84 Pulse Oximetry 99 99 99 01/27/18 12:30 01/27/18 13:00 01/27/18 15:31 Temperature 98.0 F Pulse Rate 98 H 104 H Respiratory Rate 20 13 Blood Pressure 121/72 123/58 L Pulse Oximetry 98 100 98 01/27/18 16:00 01/27/18 16:13 01/27/18 20:00 Temperature 98.2 F 97.2 F L Pulse Rate 96 H 95 H Respiratory Rate 18 18 18 Blood Pressure 129/76 154/98 H Pulse Oximetry 97 98 01/28/18 00:00 01/28/18 04:00 Temperature 98.3 F 97.8 F Pulse Rate 105 H 97 H Respiratory Rate 18 18 Blood Pressure 161/79 H 131/66 Pulse Oximetry 97 95 Intake & Output 01/27/18 01/27/18 01/28/18 06:59 18:59 06:59 Intake Total 1610 / 1610 300 / 300 Output Total 1375 / 1375 2875 / 2875 Balance -1375 / -1375 -1265 / -1265 300 / 300 Weight 205.5 kg 205.5 kg Intake: IV 130 / 130 0 / 0 NS Inj 1,000 ML @ 100 mls/hr IV 0 / 0 .CONT .Q10H [facility] Rx#:[id number] Ancef Inj 3,000 MG In NS Inj 130 / 130 100 ML @ 100 mls/hr IV.SIG Q8H [facility] Rx#:[id number] Oral 780 / 780 300 / 300 Anesthesia Amount 700 / 700 Output: Urine 1375 / 1375 2825 / 2825 Estimated Blood Loss 50 / 50 Other: # Voids 1,100 Date of Last Bowel Movement 01/20/18 01/20/18 01/28/18 # Bowel Movements 1 1 Narrative: LLE: +short leg splint. intact. NVI. RLE: +short leg splint. intact. nvi - Urinary Catheter Management Indwelling Urethral Catheter Cath placed during this visit: yes, but has since been removed by the nurse Reason for continuing: Decision to DC catheter Insertion date: 01/23/18 Insertion time: 09:00 Removal date: 01/24/18 Removal time: 14:37 Indwelling Temp Sensing Catheter Cath placed during this visit: yes Reason for continuing: Other continuation reason Insertion date: 01/27/18 Insertion time: 12:45 Results - Labs CBC & Chem 7: 01/24/18 09:08 01/22/18 05:11 - Imaging Impressions Ankle X-Ray 01/27/18 00:00 CONCLUSION: Satisfactory postoperative appearance of the left ankle status post ORIF. - Procedures 01/21: IVC filter placement 01/23: ORIF right talus Assessment and Plan - Assessment and Plan 1) Left Acetabulum Fx - nonop -NWB -new xrays shoe acceptable alignment -will still plan for nonop treatment -patient needs to be on weight based lovenox at this point. 100mg BID -ortho cleared for DC to SNF -f/u with [facility] or [facility] in 2 weeks 2) Right Talar Neck Fx and Fibula fx s/p ORIF - POD 5 -NWB -maintain splint at all times -elevate 3) Left Bimalleolar Ankle Fracture s/p ORIF - POD 1 -NWB -maintain splint at all times -NWB -ortho surgeries complete at this time -CM for rehab placement -ortho cleared for DC to SNF when arrangements made -f/u with [facility] or [facility] in 2 weeks [facility] Prescription Drug Monitoring Database has been queried and verified prior to prescribing the controlled substance. Acute pain exception. This patient has normal, predicted, physiological, and time limited response to an adverse mechanical stimulus associated with surgery, trauma, or acute illness as described in my notes. There is a lack of alternative treatment options other than to include the prescribed narcotic treatment for this condition.
[2018-01-28] MEDS: Pantoprazole Inj 40 MG Vial IV.PUSH SCH (06:51)
[2018-01-28] MEDS: Sod Chloride 0.9% Inj 1,000 ML IV.CONT SCH ×2 (08:35→17:02)
[2018-01-28] MEDS: Calcium/Vitamin D 250/125 MG Tablet PO SCH ×3 (09:25→17:01)
[2018-01-28] MEDS: Enoxaparin Inj 100 MG/ML Syringe SQ SCH ×2 (09:25→21:17)
[2018-01-28] MEDS: Metoprolol Tartrate 25 MG Tablet PO SCH ×4 (09:25→21:16)
[2018-01-28] MEDS: Polyethylene Glycol 3350 17 GM Packet PO SCH (09:27)
[2018-01-28] MEDS: Vancomycin Inj 1,000 MG in Sodium Chlor 0.9% Inj 250 ML IV.SIG SCH (10:42)
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
[2018-01-29] MEDS: Senna/Docusate Sodium 8.6/50 MG Tablet PO SCH ×3 (01:21→20:18)
[2018-01-29] MEDS: Sod Chloride 0.9% Inj 1,000 ML IV.CONT SCH ×2 (03:30→11:30)
[2018-01-29] MEDS: Pantoprazole Inj 40 MG Vial IV.PUSH SCH (06:34)
--- NOTE | 2018-01-29 06:36 | P.PNOP ---
Subjective Interval history: POD 2 s/p ORIF left ankle POD 6 s/p ORIF right talus s/p left acetabulum fx doing well. pain controlled. sat at edge of bed yesterday Physical Exam Vital signs: Vital Signs 01/28/18 09:00 01/28/18 09:56 01/28/18 12:00 Temperature 97.8 F 97.8 F Pulse Rate 86 59 L Respiratory Rate 20 18 20 Blood Pressure 126/74 125/79 Pulse Oximetry 95 96 01/28/18 13:26 01/28/18 16:00 01/28/18 17:31 Temperature 97.9 F Pulse Rate 82 Respiratory Rate 18 20 18 Blood Pressure 161/72 H Pulse Oximetry 95 01/28/18 20:00 01/28/18 23:25 01/29/18 03:10 Temperature 97.3 F L 97.4 F L 97.4 F L Pulse Rate 98 H 94 H 76 Respiratory Rate 20 18 18 Blood Pressure 122/77 138/77 140/92 H Pulse Oximetry 95 96 96 Intake & Output 01/28/18 01/28/18 01/29/18 06:59 18:59 06:59 Intake Total 680 / 680 1380 / 1380 1100 / 1100 Output Total 700 / 700 Balance 680 / 680 1380 / 1380 400 / 400 Weight 205.5 kg Intake: IV 380 / 380 1380 / 1380 1000 / 1000 NS Inj 1,000 ML @ 100 mls/hr IV 0 / 0 1000 / 1000 1000 / 1000 .CONT .Q10H [facility] Rx#:[id number] Vancomycin Inj 1,000 MG In NS 250 / 250 250 / 250 Inj 250 ML @ 200 mls/hr IV.SIG Q12H [facility] Rx#:[id number] Ancef Inj 3,000 MG In NS Inj 130 / 130 130 / 130 100 ML @ 100 mls/hr IV.SIG Q8H [facility] Rx#:[id number] Oral 300 / 300 Other 100 / 100 Output: Urine 700 / 700 Other: # Voids 1,100 3 Date of Last Bowel Movement 01/28/18 01/28/18 01/28/18 # Bowel Movements 1 Narrative: RLE: NWB. maintain splint LLE: NWB. maintain splint - Urinary Catheter Management Indwelling Urethral Catheter Cath placed during this visit: yes, but has since been removed by the nurse Reason for continuing: Decision to DC catheter Insertion date: 01/23/18 Insertion time: 09:00 Removal date: 01/24/18 Removal time: 14:37 Indwelling Temp Sensing Catheter Cath placed during this visit: yes, but has since been removed by the nurse Reason for continuing: Other continuation reason Insertion date: 01/27/18 Insertion time: 12:45 Removal date: 01/28/18 Removal time: 12:50 Results - Labs CBC & Chem 7: 01/24/18 09:08 01/22/18 05:11 - Procedures 01/21: IVC filter placement 01/23: ORIF right talus Assessment and Plan - Assessment and Plan 1) Left Acetabulum Fx - nonop -NWB -new xrays shoe acceptable alignment -will still plan for nonop treatment -patient needs to be on weight based lovenox at this point. 100mg BID -ortho cleared for DC to SNF -f/u with [facility] or PA in 2 weeks 2) Right Talar Neck Fx and Fibula fx s/p ORIF - POD 6 -NWB -maintain splint at all times -elevate 3) Left Bimalleolar Ankle Fracture s/p ORIF - POD 2 -NWB -maintain splint at all times -NWB -ortho surgeries complete at this time -CM for rehab placement -ortho cleared for DC to SNF when arrangements made -f/u with [facility] or [facility] in 2 weeks [facility] Prescription Drug Monitoring Database has been queried and verified prior to prescribing the controlled substance. Acute pain exception. This patient has normal, predicted, physiological, and time limited response to an adverse mechanical stimulus associated with surgery, trauma, or acute illness as described in my notes. There is a lack of alternative treatment options other than to include the prescribed narcotic treatment for this condition.
[2018-01-29] MEDS: dilTIAZem 30 MG Tablet PO SCH ×4 (09:51→20:24)
[2018-01-29] MEDS: Metoprolol Tartrate 25 MG Tablet PO SCH ×4 (09:51→20:24)
[2018-01-29] MEDS: Calcium/Vitamin D 250/125 MG Tablet PO SCH ×3 (09:51→19:50)
[2018-01-29] MEDS: Enoxaparin Inj 100 MG/ML Syringe SQ SCH ×2 (09:52→20:19)
[2018-01-29] MEDS: Polyethylene Glycol 3350 17 GM Packet PO SCH (09:54)
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
[2018-01-30] MEDS: dilTIAZem 60 MG Tablet PO SCH ×5 (00:53→20:12)
[2018-01-30] MEDS: Pantoprazole Inj 40 MG Vial IV.PUSH SCH (06:21)
--- NOTE | 2018-01-30 07:21 | P.PNOP ---
Subjective Interval history: Doing well. Pain well controlled. Lying in bed Physical Exam Vital signs: Vital Signs 01/29/18 08:00 01/29/18 12:00 01/29/18 16:00 Temperature 97.3 F L 97.3 F L 97.9 F Pulse Rate 95 H 94 H 111 H Respiratory Rate 19 19 19 Blood Pressure 132/67 169/74 H 112/66 Pulse Oximetry 96 96 97 01/29/18 20:00 01/30/18 00:00 01/30/18 04:00 Temperature 98.2 F 97.9 F 97.7 F Pulse Rate 108 H 80 106 H Respiratory Rate 18 18 18 Blood Pressure 126/76 132/62 149/72 H Pulse Oximetry 97 97 96 01/30/18 04:58 Temperature Pulse Rate 107 H Respiratory Rate Blood Pressure Pulse Oximetry Intake & Output 01/29/18 01/30/18 01/30/18 18:59 06:59 18:59 Output Total 875 / 875 Balance -875 / -875 Weight 178.1 kg Output: Urine 875 / 875 Other: Date of Last Bowel Movement 01/28/18 01/28/18 Narrative: Lying in bed. Both lower extremity short leg splint is intact. Sensation both feet normal. Moves his toes. Tenderness around the left hip. - Urinary Catheter Management Indwelling Urethral Catheter Cath placed during this visit: yes, but has since been removed by the nurse Reason for continuing: Decision to DC catheter Insertion date: 01/23/18 Insertion time: 09:00 Removal date: 01/24/18 Removal time: 14:37 Indwelling Temp Sensing Catheter Cath placed during this visit: yes, but has since been removed by the nurse Reason for continuing: Other continuation reason Insertion date: 01/27/18 Insertion time: 12:45 Removal date: 01/28/18 Removal time: 12:50 Results - Labs CBC & Chem 7: 01/24/18 09:08 01/22/18 05:11 - Procedures 01/21: IVC filter placement 01/23: ORIF right talus Assessment and Plan - Assessment and Plan 1) Left Acetabulum Fx - nonop -NWB -will still plan for nonop treatment -patient needs to be on weight based lovenox at this point. 100mg BID -ortho cleared for DC to SNF -f/u with [facility] or [place] in 2 weeks 2) Right Talar Neck Fx and Fibula fx s/p ORIF - POD 7 -NWB -maintain splint at all times -elevate 3) Left Bimalleolar Ankle Fracture s/p ORIF - POD 3 -NWB -maintain splint at all times -NWB -ortho surgeries complete at this time -CM for rehab placement -ortho cleared for DC to SNF when arrangements made -f/u with [facility] or [facility] in 2 weeks [email or web address] Prescription Drug Monitoring Database has been queried and verified prior to prescribing the controlled substance. Acute pain exception. This patient has normal, predicted, physiological, and time limited response to an adverse mechanical stimulus associated with surgery, trauma, or acute illness as described in my notes. There is a lack of alternative treatment options other than to include the prescribed narcotic treatment for this condition.
[2018-01-30] MEDS: Senna/Docusate Sodium 8.6/50 MG Tablet PO SCH ×2 (08:46→20:12)
[2018-01-30] MEDS: Calcium/Vitamin D 250/125 MG Tablet PO SCH ×3 (08:46→17:34)
[2018-01-30] MEDS: Enoxaparin Inj 100 MG/ML Syringe SQ SCH ×2 (08:46→20:12)
[2018-01-30] MEDS: Metoprolol Tartrate 25 MG Tablet PO SCH ×4 (08:47→20:12)
[2018-01-30] MEDS: Polyethylene Glycol 3350 17 GM Packet PO SCH (08:47)
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
[2018-01-31 05:46] LABS: Baso % (Auto) 0.5 % (0.0-2.0); Eos # (Auto) 0.2 th/mm3 (0.0-0.4); Eos % (Auto) 2.5 % (0.0-4.0); Hematocrit 35.2 % (39.0-51.0); Hemoglobin 11.7 gm/dL (13.0-17.0); Lymph # (Auto) 1.2 th/mm3 (1.0-4.8); Lymph % (Auto) 18.8 % (9.0-44.0); Mean Corpuscular HGB Conc 33.2 % (32.0-36.0); Mean Corpuscular Hemoglobin 29.8 pg (27.0-34.0); Mean Corpuscular Volume 89.8 fL (80.0-100.0); Mean Platelet Volume 8.7 fL (7.0-11.0); Mono # (Auto) 0.7 th/mm3 (0.0-0.9); Mono % (Auto) 11.2 % (0.0-8.0); Neut # (Auto) 4.1 th/mm3 (1.8-7.7); Platelet Count 182 th/mm3 (150-450); Red Blood Count 3.92 mil/mm3 (4.50-5.90); Red Cell Distribution Width 15.2 % (11.6-17.2); White Blood Count 6.1 th/mm3 (4.0-11.0)
[2018-01-31 06:05] LABS: Calcium 8.4 mg/dL (8.5-10.1); Carbon Dioxide 31.1 meq/L (21.0-32.0); Potassium 3.8 meq/L (3.5-5.1)
[2018-01-31] MEDS: Pantoprazole Inj 40 MG Vial IV.PUSH SCH (06:42)
--- NOTE | 2018-01-31 07:09 | P.PNOP ---
Subjective Interval history: Doing well. No complaints. Eager to be discharged to halfway Physical Exam Vital signs: Vital Signs 01/30/18 08:00 01/30/18 12:00 01/30/18 16:00 Temperature 98.4 F 99.0 F 98.7 F Pulse Rate 98 H 106 H 96 H Respiratory Rate 14 14 14 Blood Pressure 124/63 142/72 H 167/72 H Pulse Oximetry 96 96 97 01/30/18 20:00 01/31/18 00:00 01/31/18 00:45 Temperature 98.1 F 98.3 F Pulse Rate 95 H 96 H 102 H Respiratory Rate 17 18 Blood Pressure 142/66 H 136/72 Pulse Oximetry 96 98 01/31/18 04:00 Temperature 98.3 F Pulse Rate 87 Respiratory Rate 18 Blood Pressure 147/76 H Pulse Oximetry 97 Intake & Output 01/30/18 01/31/18 01/31/18 18:59 06:59 18:59 Output Total 1300 / 1300 675 / 675 Balance -1300 / -1300 -675 / -675 Weight 178.8 kg Output: Urine 1300 / 1300 675 / 675 Other: # Voids 5 Date of Last Bowel Movement 01/28/18 Narrative: Bilateral lower extremity splints. Sensation normal. No abnormal swelling. Dressing of right shoulder irritating him from vena cava filter. This was removed. No SOI. - Urinary Catheter Management Indwelling Urethral Catheter Cath placed during this visit: yes, but has since been removed by the nurse Reason for continuing: Decision to DC catheter Insertion date: 01/23/18 Insertion time: 09:00 Removal date: 01/24/18 Removal time: 14:37 Indwelling Temp Sensing Catheter Cath placed during this visit: yes, but has since been removed by the nurse Reason for continuing: Other continuation reason Insertion date: 01/27/18 Insertion time: 12:45 Removal date: 01/28/18 Removal time: 12:50 Results - Labs CBC & Chem 7: 01/31/18 04:32 01/31/18 04:32 Laboratory Results - last 24 hr 01/31/18 01/31/18 04:32 04:32 WBC 6.1 RBC 3.92 L Hgb 11.7 L Hct 35.2 L MCV 89.8 MCH 29.8 MCHC 33.2 RDW 15.2 Plt Count 182 D MPV 8.7 Neut % (Auto) 67.0 Lymph % (Auto) 18.8 [place] % (Auto) 11.2 H Eos % (Auto) 2.5 Baso % (Auto) 0.5 Neut # (Auto) 4.1 Lymph # (Auto) 1.2 [place] # (Auto) 0.7 Eos # (Auto) 0.2 Baso # (Auto) 0.0 WBC Differential . Differential Comment Auto diff final Sodium 137 Potassium 3.8 Chloride 99 Carbon Dioxide 31.1 Anion Gap 7 BUN 19 H Creatinine 0.94 Estimated GFR 84 L Random Glucose 93 Calcium 8.4 L - Procedures 01/21: IVC filter placement 01/23: ORIF right talus Assessment and Plan - Assessment and Plan 1) Left Acetabulum Fx - nonop -NWB -will still plan for nonop treatment -patient needs to be on weight based lovenox at this point. 100mg BID -ortho cleared for DC to SNF -f/u with [facility] or [place] in 2 weeks 2) Right Talar Neck Fx and Fibula fx s/p ORIF - POD 8 -NWB -maintain splint at all times -elevate 3) Left Bimalleolar Ankle Fracture s/p ORIF - POD 4 -NWB -maintain splint at all times -NWB -ortho surgeries complete at this time -CM for rehab placement -ortho cleared for DC to SNF when arrangements made -f/u with [facility] or [place] in 2 weeks [email or web address] Prescription Drug Monitoring Database has been queried and verified prior to prescribing the controlled substance. Acute pain exception. This patient has normal, predicted, physiological, and time limited response to an adverse mechanical stimulus associated with surgery, trauma, or acute illness as described in my notes. There is a lack of alternative treatment options other than to include the prescribed narcotic treatment for this condition.
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
[2018-01-31] MEDS: Enoxaparin Inj 100 MG/ML Syringe SQ SCH ×2 (08:31→20:20)
[2018-01-31] MEDS: Polyethylene Glycol 3350 17 GM Packet PO SCH (08:31)
[2018-01-31] MEDS: Calcium/Vitamin D 250/125 MG Tablet PO SCH ×3 (08:31→17:31)
[2018-01-31] MEDS: Senna/Docusate Sodium 8.6/50 MG Tablet PO SCH ×2 (08:32→20:20)
[2018-01-31] MEDS: Metoprolol Tartrate 25 MG Tablet PO SCH ×4 (08:32→20:20)
[2018-01-31] MEDS: dilTIAZem 60 MG Tablet PO SCH ×4 (08:41→20:20)
[2018-02-01] MEDS: Metoprolol Tartrate 25 MG Tablet PO SCH ×5 (09:38→21:31)
[2018-02-01] MEDS: Calcium/Vitamin D 250/125 MG Tablet PO SCH ×4 (09:38→17:59)
[2018-02-01] MEDS: dilTIAZem 60 MG Tablet PO SCH ×5 (09:39→21:31)
[2018-02-01] MEDS: Senna/Docusate Sodium 8.6/50 MG Tablet PO SCH ×2 (09:39→21:31)
[2018-02-01] MEDS: Enoxaparin Inj 100 MG/ML Syringe SQ SCH ×2 (10:18→20:31)
[2018-02-01] MEDS: Polyethylene Glycol 3350 17 GM Packet PO SCH (10:18)
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
[2018-02-02] MEDS: Senna/Docusate Sodium 8.6/50 MG Tablet PO SCH ×2 (08:56→20:58)
[2018-02-02] MEDS: Polyethylene Glycol 3350 17 GM Packet PO SCH (08:56)
[2018-02-02] MEDS: Calcium/Vitamin D 250/125 MG Tablet PO SCH ×3 (08:56→17:32)
[2018-02-02] MEDS: Metoprolol Tartrate 25 MG Tablet PO SCH ×4 (08:57→20:58)
[2018-02-02] MEDS: dilTIAZem 60 MG Tablet PO SCH ×4 (08:57→20:58)
[2018-02-02] MEDS: Enoxaparin Inj 100 MG/ML Syringe SQ SCH ×2 (09:00→20:59)
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
--- NOTE | 2018-02-03 06:37 | P.PNOP ---
Subjective Interval history: Resting comfortably. Is making decisions concerning discharge plans to rehabilitation. Physical Exam Vital signs: Vital Signs 02/02/18 06:49 02/02/18 08:00 02/02/18 12:00 Temperature 98.1 F 97.8 F Pulse Rate 95 H 101 H Respiratory Rate 17 16 16 Blood Pressure 138/80 141/87 H Pulse Oximetry 97 96 02/02/18 16:00 02/02/18 20:00 02/02/18 20:10 Temperature 97.4 F L 98.0 F Pulse Rate 99 H 91 H 85 Respiratory Rate 16 20 Blood Pressure 165/74 H 128/65 Pulse Oximetry 97 95 02/03/18 00:15 02/03/18 00:49 02/03/18 05:10 Temperature 97.1 F L 97.8 F Pulse Rate 96 H 83 107 H Respiratory Rate 20 20 Blood Pressure 126/68 132/78 Pulse Oximetry 95 96 Intake & Output 02/02/18 02/02/18 02/03/18 06:59 18:59 06:59 Intake Total 120 / 120 2039 Balance 120 / 120 2039 Weight 178.8 kg Intake: Oral 120 / 120 2039 Other: # Voids 7 3 Date of Last Bowel Movement 01/28/18 02/02/18 02/02/18 # Bowel Movements 1 Narrative: Bilateral short-leg splints in place. Intact sensation distally and is able to move all toes bilaterally. He does have a small hematoma to the lower posterior thigh. No skin breakdown. - Urinary Catheter Management Indwelling Urethral Catheter Cath placed during this visit: yes, but has since been removed by the nurse Reason for continuing: Decision to DC catheter Insertion date: 01/23/18 Insertion time: 09:00 Removal date: 01/24/18 Removal time: 14:37 Indwelling Temp Sensing Catheter Cath placed during this visit: yes, but has since been removed by the nurse Reason for continuing: Other continuation reason Insertion date: 01/27/18 Insertion time: 12:45 Removal date: 01/28/18 Removal time: 12:50 Results - Labs CBC & Chem 7: 01/31/18 04:32 01/31/18 04:32 - Procedures 01/21: IVC filter placement 01/23: ORIF right talus Assessment and Plan - Assessment and Plan 1) Left Acetabulum Fx - nonop -NWB -will still plan for nonop treatment -patient needs to be on weight based lovenox at this point. 100mg BID -ortho cleared for DC to SNF -f/u with [facility] in 2 weeks 2) Right Talar Neck Fx and Fibula fx s/p ORIF - POD 11 -NWB -maintain splint at all times -elevate 3) Left Bimalleolar Ankle Fracture s/p ORIF - POD 7 -NWB -maintain splint at all times -NWB -ortho surgeries complete at this time X-rays today to pelvis and bilateral ankles -CM for rehab placement -ortho cleared for DC to SNF when arrangements made. Ensure that he has specific bed at facility -f/u with [facility] in 2 weeks [facility] Prescription [facility] Monitoring Database has been queried and verified prior to prescribing the controlled substance. Acute pain exception. This patient has normal, predicted, physiological, and time limited response to an adverse mechanical stimulus associated with surgery, trauma, or acute illness as described in my notes. There is a lack of alternative treatment options other than to include the prescribed narcotic treatment for this condition.
[2018-02-03] MEDS: Metoprolol Tartrate 25 MG Tablet PO SCH ×4 (08:46→21:42)
[2018-02-03] MEDS: dilTIAZem 60 MG Tablet PO SCH ×4 (08:46→21:42)
[2018-02-03] MEDS: Calcium/Vitamin D 250/125 MG Tablet PO SCH ×3 (08:46→17:25)
[2018-02-03] MEDS: Enoxaparin Inj 100 MG/ML Syringe SQ SCH ×2 (08:47→21:42)
[2018-02-03] MEDS: Polyethylene Glycol 3350 17 GM Packet PO SCH (08:50)
[2018-02-03] MEDS: Senna/Docusate Sodium 8.6/50 MG Tablet PO SCH ×2 (08:50→21:43)
--- NOTE | 2018-02-03 11:35 | XR ---
EXAM DATE: 02/03/2018 11:30 AM EST AGE/SEX: 52 years / Male INDICATIONS: Post op left ankle surgery. CLINICAL DATA: This is the patient's initial encounter. Patient reports that signs and symptoms have been present for 2 weeks and indicates a pain score of 4/10. MEDICAL/SURGICAL HISTORY: None. . left ankle surgery. COMPARISON: [facility] [place]LE [place] LEFT 2V, 01/26/2018. . FINDINGS: 2 views of the left ankle demonstrate ORIF of the patient's bimalleolar fracture. Alignment of the an kle mortise is excellent post plating. CONCLUSION: Anatomic alignment of the patient's ankle fracture post plating. Electronically signed by: Seun Funez MD 02/03/2018 11:33 AM EST
--- NOTE | 2018-02-03 11:40 | XR ---
EXAM DATE: 02/03/2018 11:34 AM EST AGE/SEX: 52 years / Male INDICATIONS: Post op right ankle surgery. CLINICAL DATA: This is the patient's initial encounter. Patient reports that signs and symptoms have been present for 2 weeks and indicates a pain score of 2/10. MEDICAL/SURGICAL HISTORY: None. . right ankle surgery COMPARISON: [facility] [place], ANKLE COMPLETE RIGHT MIN 3V, 01/21/2018. . FINDINGS: The examination demonstrates interval ORIF of a comminuted talar fracture. The alignment of the fract ure fragments is excellent. Note is made of a mildly displaced fracture of the lateral malleolus as well. There is old avulsion fragments off the inferior aspect of the medial malleolus. CONCLUSION: Excellent alignment of the patient's comminuted talar fracture. Mildly displaced fracture of the lateral malleolus. Electronically signed by: Seun Funez MD 02/03/2018 11:38 AM EST
--- NOTE | 2018-02-03 11:44 | XR ---
EXAM DATE: 02/03/2018 11:39 AM EST AGE/SEX: 52 years / Male INDICATIONS: Fracture. CLINICAL DATA: This is the patient's initial encounter. Patient reports that signs and symptoms have been present for 2 weeks and indicates a pain score of 10/10. MEDICAL/SURGICAL HISTORY: . None. COMPARISON: [facility], [facility] VIEWS (3VWS), 01/23/2018. . FINDINGS: The examination demonstrates a severely comminuted fracture of the left acetabulum. There are multipl e fracture fragments evident. There is displacement of the femoral head medially into the acetabulum. There is fracture that extends down to and involves the inferior ischio ramus on the left as well. The remainder the osseous structures of the pelvis appear grossly intact. The femoral head and neck appear intact. CONCLUSION: Severely comminuted fracture involving the left acetabulum. Fracture involving the inferior ischio ramus on the left as well. Electronically signed by: Seun Funez MD 02/03/2018 11:43 AM EST
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
--- NOTE | 2018-02-04 06:42 | P.PNOP ---
Subjective Interval history: Resting comfortably with no new complaints Physical Exam Vital signs: Vital Signs 02/03/18 08:00 02/03/18 09:00 02/03/18 12:00 Temperature 98.2 F 97.3 F L Pulse Rate 100 H 110 H 90 Respiratory Rate 18 18 Blood Pressure 134/64 141/67 H Pulse Oximetry 99 97 02/03/18 16:00 02/03/18 19:57 02/03/18 23:20 Temperature 98.3 F 98.1 F 97.9 F Pulse Rate 98 H 98 H 101 H Respiratory Rate 18 18 18 Blood Pressure 136/65 134/62 143/69 H Pulse Oximetry 97 96 97 02/04/18 04:13 Temperature 97.7 F Pulse Rate 89 Respiratory Rate 18 Blood Pressure 133/71 Pulse Oximetry 96 Intake & Output 02/03/18 02/03/18 02/04/18 06:59 18:59 06:59 Intake Total 2039 / 2039 1080 / 1080 360 / 360 Output Total 150 / 150 1175 / 1175 650 / 650 Balance 1890 / 1890 -95 / -95 -290 / -290 Weight 178.8 kg 178.8 kg Intake: Oral 2039 1080 / 1080 360 / 360 Output: Urine 150 / 150 1175 / 1175 650 / 650 Other: # Voids 3 Date of Last Bowel Movement 02/03/18 02/03/18 02/03/18 # Bowel Movements 1 0 Narrative: Bilateral lower extremities with splints in place. Intact sensation bilaterally. Active movement of toes. Good capillary refills. Pain with left hip motion - Urinary Catheter Management Indwelling Urethral Catheter Cath placed during this visit: yes, but has since been removed by the nurse Reason for continuing: Decision to DC catheter Insertion date: 01/23/18 Insertion time: 09:00 Removal date: 01/24/18 Removal time: 14:37 Indwelling Temp Sensing Catheter Cath placed during this visit: yes, but has since been removed by the nurse Reason for continuing: Other continuation reason Insertion date: 01/27/18 Insertion time: 12:45 Removal date: 01/28/18 Removal time: 12:50 Results - Labs CBC & Chem 7: 01/31/18 04:32 01/31/18 04:32 - Imaging Impressions Ankle X-Ray 02/03/18 00:00 CONCLUSION: Anatomic alignment of the patient's ankle fracture post plating. Ankle X-Ray 02/03/18 00:00 CONCLUSION: Excellent alignment of the patient's comminuted talar fracture. Mildly displaced fracture of the lateral malleolus. Pelvis X-Ray 02/03/18 00:00 CONCLUSION: Severely comminuted fracture involving the left acetabulum. Fracture involving the inferior ischio ramus on the left as well. - Procedures 01/21: IVC filter placement 01/23: ORIF right talus Assessment and Plan - Assessment and Plan 1) Left Acetabulum Fx - nonop -NWB -will still plan for nonop treatment -patient needs to be on weight based lovenox at this point. 100mg BID -ortho cleared for DC to SNF -f/u with [facility] in 2 weeks 2) Right Talar Neck Fx and Fibula fx s/p ORIF - POD 12 -NWB -maintain splint at all times -elevate 3) Left Bimalleolar Ankle Fracture s/p ORIF - POD 8 -NWB -maintain splint at all times -NWB -ortho surgeries complete at this time -CM for rehab placement -ortho cleared for DC to SNF when arrangements made. Ensure that he has specific bed at facility -f/u with [facility] or [facility] in 2 weeks [employer] Prescription Drug Monitoring Database has been queried and verified prior to prescribing the controlled substance. Acute pain exception. This patient has normal, predicted, physiological, and time limited response to an adverse mechanical stimulus associated with surgery, trauma, or acute illness as described in my notes. There is a lack of alternative treatment options other than to include the prescribed narcotic treatment for this condition.
[2018-02-04] MEDS: Enoxaparin Inj 100 MG/ML Syringe SQ SCH ×2 (08:16→20:51)
[2018-02-04] MEDS: Calcium/Vitamin D 250/125 MG Tablet PO SCH ×3 (08:17→16:59)
[2018-02-04] MEDS: dilTIAZem CD 240 MG Capsule PO SCH (08:17)
[2018-02-04] MEDS: Senna/Docusate Sodium 8.6/50 MG Tablet PO SCH ×2 (08:17→20:51)
[2018-02-04] MEDS: Polyethylene Glycol 3350 17 GM Packet PO SCH (08:19)
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
--- NOTE | 2018-02-04 16:05 | P.PNOP ---
Subjective Interval history: Patient is awake and alert. He continues to have significant left hip pain with any movement. He has minimal pain of his ankles. He has been able to transfer from bed to wheelchair. Physical Exam Vital signs: Vital Signs 02/03/18 19:57 02/03/18 23:20 02/04/18 04:13 Temperature 98.1 F 97.9 F 97.7 F Pulse Rate 98 H 101 H 89 Respiratory Rate 18 18 18 Blood Pressure 134/62 143/69 H 133/71 Pulse Oximetry 96 97 96 02/04/18 08:45 02/04/18 11:05 02/04/18 12:38 Temperature 97.7 F 97.6 F Pulse Rate 97 H 89 Respiratory Rate 14 18 20 Blood Pressure 137/57 L 133/77 Pulse Oximetry 98 97 Intake & Output 02/03/18 02/04/18 02/04/18 18:59 06:59 18:59 Intake Total 1080 / 1080 360 / 360 Output Total 1175 / 1175 650 / 650 Balance -95 / -95 -290 / -290 Weight 178.8 kg Intake: Oral 1080 / 1080 360 / 360 Output: Urine 1175 / 1175 650 / 650 Other: Date of Last Bowel Movement 02/03/18 02/03/18 02/03/18 # Bowel Movements 0 Narrative: Renato is awake and alert. He is morbidly obese. He has pain with any left hip motion. He has well-padded splint on ankles bilaterally. Incision is intact in both feet. - Urinary Catheter Management Indwelling Urethral Catheter Cath placed during this visit: yes, but has since been removed by the nurse Reason for continuing: Decision to DC catheter Insertion date: 01/23/18 Insertion time: 09:00 Removal date: 01/24/18 Removal time: 14:37 Indwelling Temp Sensing Catheter Cath placed during this visit: yes, but has since been removed by the nurse Reason for continuing: Other continuation reason Insertion date: 01/27/18 Insertion time: 12:45 Removal date: 01/28/18 Removal time: 12:50 Results - Labs CBC & Chem 7: 01/31/18 04:32 01/31/18 04:32 - Imaging X-rays of pelvis were reviewed. The left femoral head has shifted posterior to the dome of the acetabulum. There is been further displacement of complex left acetabular fracture. - Procedures 01/21: IVC filter placement 01/23: ORIF right talus Assessment and Plan - Assessment and Plan 1) Left Acetabulum Fx -nonoperative treatment has failed--patient has increased displacement of the left acetabular fracture. The femoral head is now displaced posterior to the acetabular dome. I had a lengthy discussion with patient regarding treatment options. With the current displacement of the fracture, I think that he would have a very poor outcome with nonoperative treatment. I discussed with him surgical options. He would be in favor of proceeding with surgery to yield a better functional outcome. Given patient's extremely large size and complex fracture he will need to be transferred to [facility] for definitive treatment. I discussed this case with Dr. Shah who is willing to accept patient for surgical treatment of complex left acetabular fracture. Case management has been notified. Patient will need to be transferred to [facility] on 2017 for surgery this week.. - 2) Right Talar Neck Fx and Fibula fx s/p ORIF - POD 12 -NWB -maintain splint at all times -elevate 3) Left Bimalleolar Ankle Fracture s/p ORIF - POD 8 -NWB -maintain splint at all times -NWB 4) continue Lovenox for DVT prophylaxis [employer] Prescription Drug Monitoring Database has been queried and verified prior to prescribing the controlled substance. Acute pain exception. This patient has normal, predicted, physiological, and time limited response to an adverse mechanical stimulus associated with surgery, trauma, or acute illness as described in my notes. There is a lack of alternative treatment options other than to include the prescribed narcotic treatment for this condition.
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
--- NOTE | 2018-02-05 06:30 | P.PNOP ---
Subjective Interval history: s/p left acetabulum fx POD 9 s/p ORIF left ankle POD 13 s/p ORIF right Talus doign well. pain controlled Physical Exam Vital signs: Vital Signs 02/04/18 08:45 02/04/18 11:05 02/04/18 12:38 Temperature 97.7 F 97.6 F Pulse Rate 97 H 89 Respiratory Rate 14 18 20 Blood Pressure 137/57 L 133/77 Pulse Oximetry 98 97 02/04/18 20:00 02/04/18 20:08 02/04/18 23:03 Temperature 97.1 F L 97.5 F L Pulse Rate 89 88 82 Respiratory Rate 19 19 Blood Pressure 143/81 H 128/67 Pulse Oximetry 96 93 L 02/05/18 00:11 02/05/18 03:30 02/05/18 03:37 Temperature 98.2 F Pulse Rate 90 75 108 H Respiratory Rate 18 Blood Pressure 149/78 H Pulse Oximetry 96 Intake & Output 02/04/18 02/04/18 02/05/18 06:59 18:59 06:59 Intake Total 360 / 360 1200 / 1200 360 / 360 Output Total 650 / 650 875 / 875 Balance -290 / -290 1200 / 1200 -515 / -515 Weight 178.8 kg 178.8 kg Intake: Oral 360 / 360 1200 / 1200 360 / 360 Output: Urine 650 / 650 875 / 875 Other: # Voids 3 Date of Last Bowel Movement 02/03/18 02/03/18 02/03/18 # Bowel Movements 0 0 Narrative: LLE: +short leg splint. intact. NVI RLE: +short leg splint. intact. NVI - Urinary Catheter Management Indwelling Urethral Catheter Cath placed during this visit: yes, but has since been removed by the nurse Reason for continuing: Decision to DC catheter Insertion date: 01/23/18 Insertion time: 09:00 Removal date: 01/24/18 Removal time: 14:37 Indwelling Temp Sensing Catheter Cath placed during this visit: yes, but has since been removed by the nurse Reason for continuing: Other continuation reason Insertion date: 01/27/18 Insertion time: 12:45 Removal date: 01/28/18 Removal time: 12:50 Results - Labs CBC & Chem 7: 01/31/18 04:32 01/31/18 04:32 - Procedures 01/21: IVC filter placement 01/23: ORIF right talus Assessment and Plan - Assessment and Plan 1) Left Acetabulum Fx -nonoperative treatment has failed--patient has increased displacement of the left acetabular fracture. The femoral head is now displaced posterior to the acetabular dome. I had a lengthy discussion with patient regarding treatment options. With the current displacement of the fracture, I think that he would have a very poor outcome with nonoperative treatment. I discussed with him surgical options. He would be in favor of proceeding with surgery to yield a better functional outcome. Given patient's extremely large size and complex fracture he will need to be transferred to [facility] for definitive treatment. I discussed this case with Dr. Shah who is willing to accept patient for surgical treatment of complex left acetabular fracture. Case management has been notified. Patient will need to be transferred to [facility] on 2017 for surgery this week.. - 2) Right Talar Neck Fx and Fibula fx s/p ORIF - POD 13 -NWB -maintain splint at all times -elevate 3) Left Bimalleolar Ankle Fracture s/p ORIF - POD 9 -NWB -maintain splint at all times -NWB 4) continue Lovenox for DVT prophylaxis [employer] Prescription Drug Monitoring Database has been queried and verified prior to prescribing the controlled substance. Acute pain exception. This patient has normal, predicted, physiological, and time limited response to an adverse mechanical stimulus associated with surgery, trauma, or acute illness as described in my notes. There is a lack of alternative treatment options other than to include the prescribed narcotic treatment for this condition.
[2018-02-05] MEDS: dilTIAZem CD 240 MG Capsule PO SCH ×2 (07:42→11:42)
[2018-02-05] MEDS: Enoxaparin Inj 100 MG/ML Syringe SQ SCH ×3 (07:42→21:37)
[2018-02-05] MEDS: Calcium/Vitamin D 250/125 MG Tablet PO SCH ×4 (07:42→18:25)
[2018-02-05] MEDS: Polyethylene Glycol 3350 17 GM Packet PO SCH ×2 (07:42→11:43)
[2018-02-05] MEDS: Senna/Docusate Sodium 8.6/50 MG Tablet PO SCH ×3 (07:43→21:37)
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
--- NOTE | 2018-02-05 19:08 | P.PNREH ---
Exam - Physical Examination Vital Signs / I&O: Vital Signs 02/04/18 20:00 02/04/18 20:08 02/04/18 23:03 Temperature 97.1 F L 97.5 F L Pulse Rate 89 88 82 Respiratory Rate 19 19 Blood Pressure 143/81 H 128/67 Pulse Oximetry 96 93 L 02/05/18 00:11 02/05/18 03:30 02/05/18 03:37 Temperature 98.2 F Pulse Rate 90 75 108 H Respiratory Rate 18 Blood Pressure 149/78 H Pulse Oximetry 96 02/05/18 08:00 02/05/18 12:00 02/05/18 13:30 Temperature 97.7 F 97.7 F Pulse Rate 84 105 H Respiratory Rate 18 18 18 Blood Pressure 149/79 H 124/58 L Pulse Oximetry 97 93 L 02/05/18 16:00 Temperature 97.4 F L Pulse Rate 62 Respiratory Rate 18 Blood Pressure 135/62 Pulse Oximetry 97 Intake & Output 02/05/18 02/05/18 02/06/18 06:59 18:59 06:59 Intake Total 360 / 360 Output Total 875 / 875 1225 / 1225 Balance -515 / -515 -1225 / -1225 Weight 178.8 kg Intake: Oral 360 / 360 Output: Urine 875 / 875 1225 / 1225 Other: # Voids 3 Date of Last Bowel Movement 02/03/18 02/03/18 # Bowel Movements 0 Intake & Output 02/03/18 02/04/18 02/05/18 02/06/18 06:59 06:59 06:59 06:59 Intake Total 2040 / 2040 1440 / 1440 1560 / 1560 Output Total 150 / 150 1825 / 1825 875 / 875 1225 / 1225 Balance 1890 / 1890 -385 / -385 685 / 685 -1225 / -1225 Weight 178.8 kg 178.8 kg 178.8 kg Date of Last Bowel Movement: 02/03/18 Assessment and Plan (1) Closed pelvic fracture Status: Acute Code(s): S32.9XXA - Fracture of unspecified parts of lumbosacral spine and pelvis, initial encounter for closed fracture Qualifiers: Encounter type: initial encounter Pelvic bone location: pubis Sublocation of pubis: other portion of pubis Laterality: right Qualified Code(s): S32.591A - Other specified fracture of right pubis, initial encounter for closed fracture (2) Closed left acetabular fracture Status: Acute Code(s): S32.402A - Unspecified fracture of left acetabulum, initial encounter for closed fracture Qualifiers: Encounter type: initial encounter Sublocation of acetabulum: other portion of acetabulum Qualified Code(s): S32.492A - Other specified fracture of left acetabulum, initial encounter for closed fracture (3) Fracture of right talus Status: Acute Code(s): S92.101A - Unspecified fracture of right talus, initial encounter for closed fracture Qualifiers: Encounter type: initial encounter Fracture type: closed Fracture morphology: other fracture Qualified Code(s): S92.191A - Other fracture of right talus, initial encounter for closed fracture (4) Fracture of ankle, trimalleolar, left, closed Status: Acute Code(s): S82.852A - Displaced trimalleolar fracture of left lower leg, initial encounter for closed fracture - Plan Recommendations: 1. Patient is for a long term facility placement. Currently max assist of 2 for bed mobility/transfers with sliding board and nonweightbearing through both lower extremities. 2. OT for ADL's and supervision for grooming and mod assist for UE dressing. Continue for advance ADL's as tolerated 3. Careful monitoring of skin and repositioning every 2 hours to prevent breakdown 4. Continue Lovenox for DVT prophylaxis 5. Patient for transfer to [facility] for additional Orthopedic care. When returns, can re-assess for ongoing rehabilitation care.
[2018-02-05] MEDS ORDERED: HYDROmorphone PF Inj 1 MG/ML Ampul IV.PUSH PRN (19:35)
== END 2018-02-05 23:26 | disposition short-term general hospital (02) ==
LOC: NEPE 18:19 → NEDA 22:58 → N06 01-21 02:20 → N03 01-27 12:32 → N06 01-27 12:57
PROVIDERS: ADMIT Surgery; ATTEND Surgery
PROC: ORIFANK (2018-01-27 08:00)